=== PATIENT | female | born 1965 | race Caucasian/White ===

== ENCOUNTER 2016-08-24 08:14 | Emergency (ER) | payer MEDICAID, OTHER ==
[~2016-08-24] VITALS: Ht 162.6 cm; Wt 84.1 kg
[~2016-08-24 08:14] MED LIST: METOPROLOL TART50 M1
[2016-08-24 08:24] VITALS: BP 155/99
--- NOTE | 2016-08-24 08:30 | NUR ---
Patient ambulated to bed 7. RN evaluating patient at bedside.
--- NOTE | 2016-08-24 08:35 | NUR ---
PATIENT PRESENTS TO ED WITH C/O RIGHT LOWER BACK PAIN RADIATING RLE X 3 DAYS---DENIES INJURY, AMBULATORY WITH STEADY GAIT; HX HTN; RX VALSARTAN; SKIN IS PINK/WARM/DRY; AAOX4 WITH EVEN AND STEADY GAIT; LUNGS CLEAR BL; HR EVEN AND REGULAR; PT DENIES ANY FEVER, CP, SOB, OR COUGH AT THIS TIME; PATIENT STATES PAIN OF 10/10 AT THIS TIME; VSS; PATIENT POSITIONED FOR COMFORT; HOB ELEVATED; BEDRAILS UP X2; BED DOWN. ER MD MADE AWARE OF PT STATUS.
[2016-08-24] MEDS ORDERED: KETOROLAC 60 MG/2 ML VIAL IM ONE (08:50)
[2016-08-24 09:11] VITALS: BP 138/94
--- NOTE | 2016-08-24 09:11 | NUR ---
Patient discharged with v/s stable. Written and verbal after care instructions given and explained. Patient alert, oriented and verbalized understanding of instructions. Ambulatory with steady gait. All questions addressed prior to discharge. ID band removed. Patient advised to follow up with PMD. Rx of KDFLEX, TRAMADOL given. Patient educated on indication of medication including possible reaction and side effects. Opportunity to ask questions provided and answered.
== END 2016-08-24 09:11 | disposition home or self-care (01) ==
LOC: MED 08:14
DX: N39.0 Urinary tract infection, site not specified (principal); I10 Essential (primary) hypertension
CPT/HCPCS: 81002; 81025; 96372; 99283; J1885